=== PATIENT | male | born 1985 | race Caucasian/White ===

== ENCOUNTER 2022-03-13 10:48 | Emergency (ER) | payer SELFPAY ==
[2022-03-13] MEDS ORDERED: Albuterol/Ipratropium 3.0-0.5 MG/3 ML Neb Soln NEB ONE (11:16)
[2022-03-13] MEDS ORDERED: Dexamethasone 10 MG/ML SDV IVPUSH ONE (11:16)
[2022-03-13] MEDS ORDERED: Dexamethasone 10 MG/ML SDV ONE (11:22)
[2022-03-13] MEDS ORDERED: Albuterol/Ipratropium 3.0-0.5 MG/3 ML Neb Soln ONE (11:23)
== END 2022-03-13 11:51 | disposition home or self-care (01) ==
LOC: MW.ED 10:48
DX: J45.901 Unspecified asthma with (acute) exacerbation (principal); F17.210 Nicotine dependence, cigarettes, uncomplicated
CPT/HCPCS: 96374; 99284; J1100; 99283; J7620-GY